=== PATIENT | male | born 1960 | race Two or more races ===

== ENCOUNTER 2022-03-27 23:32 | Emergency (ER) | payer OTHER ==
[~2022-03-27] VITALS: Ht 170.2 cm; Wt 86.2 kg
[2022-03-27] MEDS ORDERED: COZAAR25 MG (23:37)
[2022-03-27] MEDS ORDERED: [UNRECOGNIZED DRUG - OTHER] (23:38)
[2022-03-27] MEDS ORDERED: [UNRECOGNIZED DRUG - REMARK] (23:38)
[2022-03-28] MEDS ORDERED: CEPHALEXIN500 MG PO (01:45)
== END 2022-03-28 | disposition home or self-care (01) ==
LOC: ER 23:32
DX: S01.81XA Laceration without foreign body of other part of head, initial encounter (principal); S09.90XA Unspecified injury of head, initial encounter; W45.8XXA Other foreign body or object entering through skin, initial encounter; Y93.89 Activity, other specified; Y92.018 Other place in single-family (private) house as the place of occurrence of the external cause; Y99.9 Unspecified external cause status

== ENCOUNTER 2022-04-04 16:13 | Emergency (ER) | payer OTHER ==
[~2022-04-04] VITALS: Ht 170.2 cm; Wt 81.6 kg
[~2022-04-04 16:13] MED LIST: CEPHALEXIN500 MG PO; COZAAR25 MG; [UNRECOGNIZED DRUG - OTHER]; [UNRECOGNIZED DRUG - REMARK]
== END 2022-04-04 19:11 | disposition home or self-care (01) ==
LOC: ER 16:13
DX: Z48.02 Encounter for removal of sutures (principal)